=== PATIENT | male | born 1950 | race Caucasian/White ===

== ENCOUNTER 2020-10-10 18:08 | Inpatient (IN) | payer OTHER, MEDICARE ==
[~2020-10-10] VITALS: Ht 170.2 cm; Wt 80.5 kg
[2020-10-10] MEDS ORDERED: PIPERACILLIN/TAZOBACTAM 3.375 GM in SODIUM CHLORIDE 0.9% 50ML 50 ML IV STA (18:15)
[2020-10-10] MEDS ORDERED: METHYLPREDNISOLONE SOD SUCC 125 MG/2ML VIAL IV ONE (18:30)
[2020-10-10 19:14] LABS: BASOPHILS # (AUTO) 0.1 (0.0-0.1); BASOPHILS % 0.4 % (0.0-1.0); EOSINOPHILS # (AUTO) 0.1 (0.0-0.4); EOSINOPHILS % 0.6 % (0.0-6.0); HEMATOCRIT 51.8 % (38.2-49.6); HEMOGLOBIN 16.6 g/dL (14.0-18.0); LYMPHOCYTES # (AUTO) 1.5 (1.0-3.2); LYMPHOCYTES % 10.7 % (18.0-39.1); MEAN CORPUSCULAR HEMOGLOBIN 28.7 pg (28-32); MEAN CORPUSCULAR VOLUME 89.6 fL (81-99); MONOCYTES # (AUTO) 1.3 (0.2-0.8); MONOCYTES % 8.9 % (4.4-11.3); NEUTROPHILS # (AUTO) 11.1 (2.1-6.9); NEUTROPHILS % 78.8 % (38.7-80.0); PLATELET COUNT 302 x10e3/uL (140-360); RED BLOOD COUNT 5.78 x10e6/uL (4.3-5.7); RED CELL DISTRIBUTION WIDTH 12.4 % (11.7-14.4)
[2020-10-10 19:32] LABS: ALBUMIN 3.8 g/dL (3.5-5.0); ANION GAP 20.1 mmol/L (8-16); CALCIUM 9.6 mg/dL (8.4-10.2); CREATININE, SERUM 0.82 mg/dL (0.72-1.25); POTASSIUM 4.1 mmol/L (3.5-5.1)
[2020-10-10 19:38] LABS: CREATINE KINASE MB 2.2 ng/mL (0-5.0)
[2020-10-10] MEDS ORDERED: IOPAMIDOL 370 MG/ML 200 ML INFUS..BTL INJ ONE (20:02)
[2020-10-10] MEDS ORDERED: SODIUM CHLORIDE 0.9% 50ML 50 ML ONE (20:02)
[2020-10-10] MEDS ORDERED: ALBUTEROL/IPRATROPIUM 3 ML NEB NEB STA (20:32)
[2020-10-10 22:08] VITALS: BP 147/78
[2020-10-10 23:06] VITALS: BP 147/78
[2020-10-10 23:10] VITALS: BP 147/78
[2020-10-10] MEDS ORDERED: METFORMIN HCL500 M1 PO (23:34)
[2020-10-10] MEDS ORDERED: ZETIA10 MG PO (23:34)
[2020-10-10] MEDS ORDERED: ALBUTEROL1.25 MG/3 NEB (23:34)
[2020-10-10] MEDS ORDERED: AMLODIPINE-ATO1 EAC5 PO (23:34)
[2020-10-10] MEDS ORDERED: TRELEGY ELLIPT1 EACH PO (23:34)
[2020-10-10] MEDS ORDERED: COMBIVENT RESPIM4 GM IH (23:34)
[2020-10-10] MEDS ORDERED: LISINOPRIL10 MG PO (23:34)
[2020-10-10] MEDS ORDERED: ELIQUIS5 MG PO (23:34)
[2020-10-11] VITALS (7 sets, daily range): BP systolic 123–140; BP diastolic 65–74
[2020-10-11 04:45] LABS: HEMATOCRIT 47.3 % (38.2-49.6); HEMOGLOBIN 15.5 g/dL (14.0-18.0); RED BLOOD COUNT 5.32 x10e6/uL (4.3-5.7)
[2020-10-11 04:46] LABS: BASOPHILS % 0.2 % (0.0-1.0); LYMPHOCYTES # (AUTO) 0.6 (1.0-3.2); LYMPHOCYTES % 6.3 % (18.0-39.1); MEAN CORPUSCULAR HEMOGLOBIN 29.1 pg (28-32); MEAN CORPUSCULAR HGB CONC 32.8 g/dL (31-35); MEAN CORPUSCULAR VOLUME 88.9 fL (81-99); MONOCYTES # (AUTO) 0.2 (0.2-0.8); MONOCYTES % 1.8 % (4.4-11.3); NEUTROPHILS # (AUTO) 8.7 (2.1-6.9); NEUTROPHILS % 91.3 % (38.7-80.0); PLATELET COUNT 242 x10e3/uL (140-360); RED CELL DISTRIBUTION WIDTH 12.4 % (11.7-14.4)
[2020-10-11 05:08] LABS: ALBUMIN 3.2 g/dL (3.5-5.0); ALBUMIN/GLOBULIN RATIO 0.9 (0.8-2.0); ANION GAP 13.8 mmol/L (8-16); CREATININE, SERUM 0.77 mg/dL (0.72-1.25); POTASSIUM 4.8 mmol/L (3.5-5.1)
[2020-10-11] MEDS ORDERED: DEXTROSE 50% SYRINGE 50 ML IV PRN (10:45)
[2020-10-11] MEDS: INSULIN LISPRO 100 UNIT/1 ML 3ML VIAL SQ SCH ×3 (11:30→21:46)
[2020-10-11] MEDS ORDERED: AZITHROMYCIN 250 MG TAB PO ONE (11:45)
[2020-10-11] MEDS ORDERED: PIPERACILLIN/TAZOBACTAM 2.25 GM in SODIUM CHLORIDE 0.9% 50ML 50 ML IV SCH (12:00)
[2020-10-11 12:38] LABS: ABG HCO3 31 mmol/L (22-26); ABG PCO2 48 mmHg (35-45); ABG PH 7.41 (7.35-7.45); ABG PO2 64 mmHg (80-105)
[2020-10-11 12:39] LABS: ABG TCO2 32
[2020-10-11] MEDS ORDERED: SODIUM CHLORIDE 0.9% 250ML 250 ML ONE (12:50)
[2020-10-11] MEDS: PIPERACILLIN/TAZOBACTAM 3.375 GM in SODIUM CHLORIDE 0.9% 50ML 50 ML IV SCH ×2 (12:52→17:25)
[2020-10-11] MEDS: ATORVASTATIN 20 MG TAB PO SCH (12:54)
[2020-10-11] MEDS: AMLODIPINE BESYLATE 10 MG TAB PO SCH (12:54)
[2020-10-11] MEDS: ALBUTEROL/IPRATROPIUM 3 ML NEB NEB SCH ×3 (14:25→23:44)
[2020-10-11 14:34] LABS: CREATINE KINASE MB 3.2 ng/mL (0-5.0)
[2020-10-11] MEDS: LISINOPRIL 20 MG TAB PO SCH (17:25)
[2020-10-11] MEDS: APIXABAN 5 MG TABLET PO SCH (17:25)
[2020-10-11] MEDS: METHYLPREDNISOLONE SOD SUCC 40 MG/ML VIAL 1ML IV SCH (21:47)
[2020-10-12] VITALS (8 sets, daily range): BP systolic 114–137; BP diastolic 62–70
[2020-10-12] MEDS: PIPERACILLIN/TAZOBACTAM 3.375 GM in SODIUM CHLORIDE 0.9% 50ML 50 ML IV SCH ×5 (01:23→23:44)
[2020-10-12] MEDS: ALBUTEROL/IPRATROPIUM 3 ML NEB NEB SCH ×6 (03:40→22:03)
[2020-10-12 05:08] LABS: BASOPHILS % 0.1 % (0.0-1.0); HEMATOCRIT 44.9 % (38.2-49.6); HEMOGLOBIN 14.5 g/dL (14.0-18.0); LYMPHOCYTES # (AUTO) 0.8 (1.0-3.2); LYMPHOCYTES % 4.7 % (18.0-39.1); MEAN CORPUSCULAR HEMOGLOBIN 28.9 pg (28-32); MEAN CORPUSCULAR HGB CONC 32.3 g/dL (31-35); MEAN CORPUSCULAR VOLUME 89.6 fL (81-99); MONOCYTES # (AUTO) 0.4 (0.2-0.8); MONOCYTES % 2.5 % (4.4-11.3); NEUTROPHILS # (AUTO) 15.2 (2.1-6.9); PLATELET COUNT 304 x10e3/uL (140-360); RED BLOOD COUNT 5.01 x10e6/uL (4.3-5.7); RED CELL DISTRIBUTION WIDTH 12.4 % (11.7-14.4)
[2020-10-12 05:28] LABS: ALBUMIN 3.2 g/dL (3.5-5.0); ANION GAP 14.3 mmol/L (8-16); CALCIUM 8.4 mg/dL (8.4-10.2); CREATININE, SERUM 0.81 mg/dL (0.72-1.25); POTASSIUM 4.3 mmol/L (3.5-5.1)
[2020-10-12] MEDS: INSULIN LISPRO 100 UNIT/1 ML 3ML VIAL SQ SCH ×4 (07:30→21:56)
[2020-10-12] MEDS: LISINOPRIL 20 MG TAB PO SCH ×2 (08:27→16:38)
[2020-10-12] MEDS: EZETIMIBE 10 MG TAB PO SCH (08:27)
[2020-10-12] MEDS: AZITHROMYCIN 250 MG TAB PO SCH (08:27)
[2020-10-12] MEDS: ATORVASTATIN 20 MG TAB PO SCH (08:28)
[2020-10-12] MEDS: AMLODIPINE BESYLATE 10 MG TAB PO SCH (08:28)
[2020-10-12] MEDS: APIXABAN 5 MG TABLET PO SCH ×2 (08:28→16:38)
[2020-10-12] MEDS: ASPIRIN 81 MG CHEW TAB PO SCH (08:28)
[2020-10-12] MEDS: METHYLPREDNISOLONE SOD SUCC 40 MG/ML VIAL 1ML IV SCH (08:29)
[2020-10-13] VITALS (8 sets, daily range): BP systolic 120–147; BP diastolic 62–83
[2020-10-13] MEDS: ALBUTEROL/IPRATROPIUM 3 ML NEB NEB SCH ×6 (04:20→23:12)
[2020-10-13] MEDS: PIPERACILLIN/TAZOBACTAM 3.375 GM in SODIUM CHLORIDE 0.9% 50ML 50 ML IV SCH ×4 (05:18→23:36)
[2020-10-13] MEDS: METHYLPREDNISOLONE SOD SUCC 40 MG/ML VIAL 1ML IV SCH (05:18)
[2020-10-13 05:48] LABS: BASOPHILS % 0.2 % (0.0-1.0); EOSINOPHILS % 0.1 % (0.0-6.0); HEMATOCRIT 46.5 % (38.2-49.6); HEMOGLOBIN 14.5 g/dL (14.0-18.0); LYMPHOCYTES # (AUTO) 1.5 (1.0-3.2); LYMPHOCYTES % 9.1 % (18.0-39.1); MEAN CORPUSCULAR HEMOGLOBIN 28.4 pg (28-32); MEAN CORPUSCULAR HGB CONC 31.2 g/dL (31-35); MONOCYTES % 6.2 % (4.4-11.3); NEUTROPHILS # (AUTO) 13.3 (2.1-6.9); NEUTROPHILS % 83.1 % (38.7-80.0); PLATELET COUNT 348 x10e3/uL (140-360); RED BLOOD COUNT 5.11 x10e6/uL (4.3-5.7); RED CELL DISTRIBUTION WIDTH 12.6 % (11.7-14.4)
[2020-10-13 06:28] LABS: ALBUMIN 3.1 g/dL (3.5-5.0); ANION GAP 16.2 mmol/L (8-16); CALCIUM 8.2 mg/dL (8.4-10.2); CHOL/HDL RATIO 4.6 (3.9-4.7); CREATININE, SERUM 0.75 mg/dL (0.72-1.25); POTASSIUM 4.2 mmol/L (3.5-5.1)
[2020-10-13 06:49] LABS: THYROID STIMULATING HORMONE 0.417 uIU/mL (0.350-4.940)
[2020-10-13] MEDS: INSULIN LISPRO 100 UNIT/1 ML 3ML VIAL SQ SCH ×4 (07:30→20:58)
[2020-10-13] MEDS: AMLODIPINE BESYLATE 10 MG TAB PO SCH (08:34)
[2020-10-13] MEDS: ATORVASTATIN 20 MG TAB PO SCH (08:34)
[2020-10-13] MEDS: APIXABAN 5 MG TABLET PO SCH ×2 (08:34→16:50)
[2020-10-13] MEDS: ASPIRIN 81 MG CHEW TAB PO SCH (08:34)
[2020-10-13] MEDS: LISINOPRIL 20 MG TAB PO SCH ×2 (08:35→16:50)
[2020-10-13] MEDS: AZITHROMYCIN 250 MG TAB PO SCH (08:35)
[2020-10-13] MEDS: EZETIMIBE 10 MG TAB PO SCH (08:35)
[2020-10-14] VITALS (8 sets, daily range): BP systolic 121–153; BP diastolic 62–74
[2020-10-14] MEDS: ALBUTEROL/IPRATROPIUM 3 ML NEB NEB SCH ×6 (03:34→22:26)
[2020-10-14 05:54] LABS: BASOPHILS # (AUTO) 0.1 (0.0-0.1); BASOPHILS % 0.4 % (0.0-1.0); EOSINOPHILS # (AUTO) 0.2 (0.0-0.4); EOSINOPHILS % 1.3 % (0.0-6.0); HEMATOCRIT 47.5 % (38.2-49.6); LYMPHOCYTES # (AUTO) 2.1 (1.0-3.2); LYMPHOCYTES % 14.1 % (18.0-39.1); MEAN CORPUSCULAR HEMOGLOBIN 28.7 pg (28-32); MEAN CORPUSCULAR HGB CONC 31.6 g/dL (31-35); MEAN CORPUSCULAR VOLUME 90.8 fL (81-99); MONOCYTES # (AUTO) 1.2 (0.2-0.8); MONOCYTES % 7.8 % (4.4-11.3); NEUTROPHILS # (AUTO) 11.1 (2.1-6.9); NEUTROPHILS % 74.1 % (38.7-80.0); PLATELET COUNT 333 x10e3/uL (140-360); RED BLOOD COUNT 5.23 x10e6/uL (4.3-5.7); RED CELL DISTRIBUTION WIDTH 12.4 % (11.7-14.4)
[2020-10-14] MEDS: PIPERACILLIN/TAZOBACTAM 3.375 GM in SODIUM CHLORIDE 0.9% 50ML 50 ML IV SCH ×3 (06:12→18:07)
[2020-10-14] MEDS: METHYLPREDNISOLONE SOD SUCC 40 MG/ML VIAL 1ML IV SCH (06:12)
[2020-10-14 06:21] LABS: ANION GAP 14.2 mmol/L (8-16); CALCIUM 8.5 mg/dL (8.4-10.2); CREATININE, SERUM 0.72 mg/dL (0.72-1.25); POTASSIUM 4.2 mmol/L (3.5-5.1)
[2020-10-14] MEDS: INSULIN LISPRO 100 UNIT/1 ML 3ML VIAL SQ SCH ×4 (07:30→21:00)
[2020-10-14] MEDS: APIXABAN 5 MG TABLET PO SCH ×2 (10:23→17:00)
[2020-10-14] MEDS: ASPIRIN 81 MG CHEW TAB PO SCH (10:23)
[2020-10-14] MEDS: ATORVASTATIN 20 MG TAB PO SCH (10:24)
[2020-10-14] MEDS: AMLODIPINE BESYLATE 10 MG TAB PO SCH (10:24)
[2020-10-14] MEDS: LISINOPRIL 20 MG TAB PO SCH ×2 (10:24→17:00)
[2020-10-14] MEDS: EZETIMIBE 10 MG TAB PO SCH (10:25)
[2020-10-14] MEDS: AZITHROMYCIN 250 MG TAB PO SCH (10:25)
[2020-10-14] MEDS ORDERED: FUROSEMIDE INJ 10 MG/ML 4 ML VIAL IV ONE ×2 (13:00→18:00)
[2020-10-15] VITALS (8 sets, daily range): BP systolic 106–122; BP diastolic 57–70
[2020-10-15] MEDS: PIPERACILLIN/TAZOBACTAM 3.375 GM in SODIUM CHLORIDE 0.9% 50ML 50 ML IV SCH ×2 (00:26→06:04)
[2020-10-15] MEDS: ALBUTEROL/IPRATROPIUM 3 ML NEB NEB SCH ×6 (03:07→22:20)
[2020-10-15] MEDS: METHYLPREDNISOLONE SOD SUCC 40 MG/ML VIAL 1ML IV SCH (06:04)
[2020-10-15 06:47] LABS: BASOPHILS # (AUTO) 0.1 (0.0-0.1); BASOPHILS % 0.6 % (0.0-1.0); EOSINOPHILS # (AUTO) 0.4 (0.0-0.4); EOSINOPHILS % 2.4 % (0.0-6.0); HEMATOCRIT 52.1 % (38.2-49.6); HEMOGLOBIN 16.5 g/dL (14.0-18.0); LYMPHOCYTES # (AUTO) 2.2 (1.0-3.2); LYMPHOCYTES % 12.4 % (18.0-39.1); MEAN CORPUSCULAR HEMOGLOBIN 28.6 pg (28-32); MEAN CORPUSCULAR HGB CONC 31.7 g/dL (31-35); MEAN CORPUSCULAR VOLUME 90.5 fL (81-99); MONOCYTES # (AUTO) 1.2 (0.2-0.8); MONOCYTES % 6.6 % (4.4-11.3); PLATELET COUNT 379 x10e3/uL (140-360); RED BLOOD COUNT 5.76 x10e6/uL (4.3-5.7); RED CELL DISTRIBUTION WIDTH 12.5 % (11.7-14.4)
[2020-10-15 07:29] LABS: ALBUMIN 3.2 g/dL (3.5-5.0); ANION GAP 16.1 mmol/L (8-16); CALCIUM 8.8 mg/dL (8.4-10.2); CREATININE, SERUM 0.83 mg/dL (0.72-1.25); POTASSIUM 4.1 mmol/L (3.5-5.1)
[2020-10-15] MEDS: INSULIN LISPRO 100 UNIT/1 ML 3ML VIAL SQ SCH ×4 (07:30→20:47)
[2020-10-15] MEDS: APIXABAN 5 MG TABLET PO SCH ×2 (09:00→17:24)
[2020-10-15] MEDS: ATORVASTATIN 20 MG TAB PO SCH (09:00)
[2020-10-15] MEDS: AMLODIPINE BESYLATE 10 MG TAB PO SCH (09:00)
[2020-10-15] MEDS: LISINOPRIL 20 MG TAB PO SCH ×2 (09:00→17:24)
[2020-10-15] MEDS: ASPIRIN 81 MG CHEW TAB PO SCH (09:00)
[2020-10-15] MEDS: AZITHROMYCIN 250 MG TAB PO SCH (09:00)
[2020-10-15] MEDS: EZETIMIBE 10 MG TAB PO SCH (09:00)
[2020-10-15] MEDS: CEFEPIME 1 GM in SODIUM CHLORIDE 0.9% 50ML 50 ML IV SCH (14:00)
[2020-10-16] VITALS (9 sets, daily range): BP systolic 109–134; BP diastolic 48–68
[2020-10-16] MEDS: CEFEPIME 1 GM in SODIUM CHLORIDE 0.9% 50ML 50 ML IV SCH ×2 (01:12→17:46)
[2020-10-16] MEDS: ALBUTEROL/IPRATROPIUM 3 ML NEB NEB SCH ×5 (02:40→19:08)
[2020-10-16 05:07] LABS: BASOPHILS # (AUTO) 0.1 (0.0-0.1); BASOPHILS % 0.3 % (0.0-1.0); EOSINOPHILS # (AUTO) 0.1 (0.0-0.4); EOSINOPHILS % 0.4 % (0.0-6.0); LYMPHOCYTES # (AUTO) 1.3 (1.0-3.2); LYMPHOCYTES % 5.1 % (18.0-39.1); MEAN CORPUSCULAR HEMOGLOBIN 28.5 pg (28-32); MEAN CORPUSCULAR VOLUME 89.1 fL (81-99); MONOCYTES # (AUTO) 1.1 (0.2-0.8); MONOCYTES % 4.5 % (4.4-11.3); NEUTROPHILS # (AUTO) 21.4 (2.1-6.9); PLATELET COUNT 407 x10e3/uL (140-360); RED BLOOD COUNT 5.61 x10e6/uL (4.3-5.7); RED CELL DISTRIBUTION WIDTH 12.3 % (11.7-14.4)
[2020-10-16 05:50] LABS: ALBUMIN 3.1 g/dL (3.5-5.0); ANION GAP 12.3 mmol/L (8-16); CALCIUM 8.8 mg/dL (8.4-10.2); CREATININE, SERUM 0.65 mg/dL (0.72-1.25); POTASSIUM 4.3 mmol/L (3.5-5.1)
[2020-10-16] MEDS ORDERED: PREDNISONE 10 MG TAB PO SCH (09:00)
[2020-10-16] MEDS: INSULIN LISPRO 100 UNIT/1 ML 3ML VIAL SQ SCH ×4 (09:00→21:00)
[2020-10-16] MEDS: EZETIMIBE 10 MG TAB PO SCH (10:47)
[2020-10-16] MEDS: ASPIRIN 81 MG CHEW TAB PO SCH (10:47)
[2020-10-16] MEDS: APIXABAN 5 MG TABLET PO SCH ×2 (10:48→17:37)
[2020-10-16] MEDS: ATORVASTATIN 20 MG TAB PO SCH (10:48)
[2020-10-16] MEDS: AMLODIPINE BESYLATE 10 MG TAB PO SCH (10:49)
[2020-10-16] MEDS: LISINOPRIL 20 MG TAB PO SCH ×2 (10:50→17:37)
[2020-10-16] MEDS ORDERED: FUROSEMIDE INJ 10 MG/ML 4 ML VIAL IV ONE (17:25)
[2020-10-17] VITALS: BP 116/55
[2020-10-17] MEDS: CEFEPIME 1 GM in SODIUM CHLORIDE 0.9% 50ML 50 ML IV SCH (02:16)
[2020-10-17 04:00] VITALS: BP 115/55
[2020-10-17 05:00] LABS: BASOPHILS # (AUTO) 0.1 (0.0-0.1); BASOPHILS % 0.5 % (0.0-1.0); EOSINOPHILS # (AUTO) 0.5 (0.0-0.4); EOSINOPHILS % 2.1 % (0.0-6.0); HEMATOCRIT 51.5 % (38.2-49.6); HEMOGLOBIN 16.7 g/dL (14.0-18.0); LYMPHOCYTES # (AUTO) 2.2 (1.0-3.2); MEAN CORPUSCULAR HEMOGLOBIN 29.2 pg (28-32); MEAN CORPUSCULAR HGB CONC 32.4 g/dL (31-35); MEAN CORPUSCULAR VOLUME 90.2 fL (81-99); MONOCYTES # (AUTO) 1.2 (0.2-0.8); MONOCYTES % 5.1 % (4.4-11.3); NEUTROPHILS # (AUTO) 19.4 (2.1-6.9); NEUTROPHILS % 80.6 % (38.7-80.0); PLATELET COUNT 405 x10e3/uL (140-360); RED BLOOD COUNT 5.71 x10e6/uL (4.3-5.7); RED CELL DISTRIBUTION WIDTH 12.3 % (11.7-14.4)
[2020-10-17 05:22] LABS: ANION GAP 13.4 mmol/L (8-16); CALCIUM 8.6 mg/dL (8.4-10.2); CREATININE, SERUM 0.74 mg/dL (0.72-1.25); POTASSIUM 4.4 mmol/L (3.5-5.1)
[2020-10-17] MEDS: ALBUTEROL/IPRATROPIUM 3 ML NEB NEB SCH ×3 (07:15→15:39)
[2020-10-17] MEDS: INSULIN LISPRO 100 UNIT/1 ML 3ML VIAL SQ SCH ×2 (07:30→12:30)
[2020-10-17 08:00] VITALS: BP 129/68
[2020-10-17] MEDS: EZETIMIBE 10 MG TAB PO SCH (08:50)
[2020-10-17] MEDS: ASPIRIN 81 MG CHEW TAB PO SCH (08:50)
[2020-10-17] MEDS: APIXABAN 5 MG TABLET PO SCH (08:51)
[2020-10-17] MEDS: ATORVASTATIN 20 MG TAB PO SCH (08:51)
[2020-10-17] MEDS: LISINOPRIL 20 MG TAB PO SCH (08:52)
[2020-10-17] MEDS: AMLODIPINE BESYLATE 10 MG TAB PO SCH (08:52)
[2020-10-17 09:00] VITALS: BP 129/68
[2020-10-17 12:00] VITALS: BP 108/53
[2020-10-17 16:00] VITALS: BP 108/52
== END 2020-10-17 18:28 | disposition home or self-care (01) | DRG 871 ==
LOC: ER 18:25 → ERHOLD 21:51 → MED/SURG2 22:53
DX: A41.9 Sepsis, unspecified organism (principal); J15.6 Pneumonia due to other Gram-negative bacteria; J96.21 Acute and chronic respiratory failure with hypoxia; I50.33 Acute on chronic diastolic (congestive) heart failure; D68.59 Other primary thrombophilia; J44.0 Chronic obstructive pulmonary disease with (acute) lower respiratory infection; J44.1 Chronic obstructive pulmonary disease with (acute) exacerbation; I25.10 Atherosclerotic heart disease of native coronary artery without angina pectoris; Z95.5 Presence of coronary angioplasty implant and graft; Z95.820 Peripheral vascular angioplasty status with implants and grafts; I11.0 Hypertensive heart disease with heart failure; I73.9 Peripheral vascular disease, unspecified; I25.2 Old myocardial infarction; Z99.81 Dependence on supplemental oxygen; Z82.49 Family history of ischemic heart disease and other diseases of the circulatory system; Z87.891 Personal history of nicotine dependence; Z79.01 Long term (current) use of anticoagulants; Z86.711 Personal history of pulmonary embolism; Z77.090 Contact with and (suspected) exposure to asbestos; I50.812 Chronic right heart failure; Z77.098 Contact with and (suspected) exposure to other hazardous, chiefly nonmedicinal, chemicals; E87.6 Hypokalemia
CPT/HCPCS: 36415; 36600; 71045; 71260; 80048; 80053; 80061; 82550; 82553; 82805; 82948; 83605; 83880; 84443; 84484; 85025; 87040; 87070; 87205; 93005; 93306; 94640; 97139; 99284; J0456; J0692; J1940; J2543; J2920; J2930; J7050; J7512; Q9967; U0002

== ENCOUNTER → 2020-10-24 | Outpatient (CLI) | payer OTHER ==
[~2020-10-24] MED LIST: ALBUTEROL1.25 MG/3 NEB; AMLODIPINE-ATO1 EAC5 PO; COMBIVENT RESPIM4 GM IH; ELIQUIS5 MG PO; LISINOPRIL10 MG PO; METFORMIN HCL500 M1 PO; TRELEGY ELLIPT1 EACH PO; ZETIA10 MG PO
== END ==
LOC: RAD 14:46
DX: J18.9 Pneumonia, unspecified organism (principal)
CPT/HCPCS: 71046